=== PATIENT | female | born 1965 | race African-American/Black ===

== ENCOUNTER 2017-02-24 09:02 | Observation (INO) | payer SELFPAY ==
[2017-02-24] MEDS ORDERED: Acetaminophen 325 MG Suppository ONE (09:19)
[2017-02-24 09:52] LABS: Mean Platelet Volume 8.3 fL (7.4-10.4); Red Blood Cell (RBC) Count 4.82 mill/uL (4.20-5.40)
[2017-02-24 10:17] LABS: Neutrophil 97 % (42-75)
[2017-02-24] MEDS ORDERED: Albuterol Sulfate 2.5 mg/3 ml Neb ONE (11:11)
[2017-02-24] MEDS ORDERED: Albuterol Sulfate 2.5 mg/0.5 ml Neb ONE (11:11)
[2017-02-24 12:18] LABS: Troponin I Less than 0.010 ng/mL (< 0.028)
[2017-02-24 12:20] LABS: ALT (SGPT) 34 U/L (8-55); AST (SGOT) 40 U/L (5-34); Alkaline Phosphatase 74 U/L (40-150); Anion Gap 17 mmol/L (10-20); BUN (Urea Nitrogen) 13 mg/dL (7.0-18.7); Bilirubin, Total 0.2 mg/dL (0.2-1.2); Calc. Creatinine Clearance 0 mL/min (70-130); Calcium 9.7 mg/dL (7.8-10.44); Carbon Dioxide 23 mmol/L (22-29); Chloride 106 mmol/L (98-107); Estimated GFR-MDRD Greater than 90; Globulin 3.9 g/dL (2.4-3.5); Protein, Total 8.4 g/dL (6.0-8.3)
--- NOTE | 2017-02-24 12:33 | CON ---
DATE OF CONSULTATION: 02/24/2017 The patient was seen in consultation by Dr. Delacruz for evaluation of possible epiglottitis. HISTORY OF PRESENT ILLNESS: This is a 51-year-old female with history of asthma. Yesterday she has had sudden need for her albuterol, which she has had needed the preceding week or two. She woke up t his morning with a very tight feeling throat, tight chest and strong coughing fits. These coughing f its and choking fits were lead to periods where she could not breathe. She presented to the emergenc y room. CT scan of neck confirmed a possible soft tissue swelling of the upper airway. She was paul elizabeth with IV steroids, IV Levaquin and she received racemic epinephrine. She was transferred to [facility]'s Emergency Room with an emergency room physician in transit as well. OBJECTIVE: GENERAL: The patient is resting upright in the bed, slightly extended, mild respiratory distress. VITAL SIGNS: Heart rate is elevated 125. Otherwise, vital signs are within normal limits, sats 97% on room air. HEENT: Voice is mild raspy quality. NECK: No lymphadenopathy, no masses, no tender areas or fluctuant areas, no blanching, erythema, or cellulitis of an obvious lymph node. The submandibular gland appeared to be within normal limits. ORAL CAVITY AND OROPHARYNX: Shows no evidence of trismus. The floor of mouth and base of tongue muc inez is healthy. NOSE: Nasal cavity is clear anteriorly. EARS: TMs intact. Middle ears well aerated. PROCEDURE: Flexible laryngoscopy was performed after topical anesthesia and decongestant was applied to the nasal cavity. Nasal cavity and nasopharynx are clear of lesions. The bilateral vocal cords are fully mobile. Piriform sinuses, vallecula, epiglottis are all within normal limits. There is no evidence of edema, visualized in any forms, she did have her mild choking fits during the oral cavit y exam and during the flexible exam and despite that she showed a mild amount of possible laryngospas m, otherwise her obstruction appears to be more lower airway consistent with acute severe asthma esau ck. ASSESSMENT: 1. Acute asthma attack. 2. Mild laryngospasm associated with this asthma episode. PLAN: Recommend she be admitted to Internal Medicine and treated and recommend to give albuterol now . Recommend observation and monitoring her asthma symptoms. Should there be any progression of uppe r airway symptoms, please reconsult us.
--- NOTE | 2017-02-24 12:35 | RAD ---
CHEST 1 VIEW: Date: 02/24/17 HISTORY: Dyspnea. COMPARISON: 02/24/17 earlier exam. FINDINGS: Cardiac silhouette is magnified by projection. Pulmonary vasculature is upper limits of normal. Media stinum is midline. There is no lobar consolidation or evidence of pneumothorax. personnel monitor leads overlie the chest. IMPRESSION: No active cardiopulmonary abnormalities are demonstrated. POS: [facility]
[2017-02-24] MEDS ORDERED: Sodium Chloride 0.9% 1,000 ML IV SCH (13:21)
[2017-02-24] MEDS ORDERED: Ondansetron HCl/PF 4 MG/2 ML Vial IVP PRN (13:21)
[2017-02-24] MEDS ORDERED: Ondansetron ODT 4 MG TAB SL PRN (13:21)
[2017-02-24 13:36] VITALS: BMI 38.3
[2017-02-24] MEDS: Acetaminophen 325 MG TAB PO PRN ×2 (14:34→17:23)
[2017-02-24] MEDS: Dexamethasone 4 mg/ml Vial SLOW IVP SCH ×2 (14:34→21:40)
[2017-02-24] MEDS ORDERED: FLU VACC QS2017-18 36 mo. & older 0.5 ML SYRINGE IM ONE (14:45)
[2017-02-24] MEDS ORDERED: hydrALAZINE 20 MG/ML VIAL SLOW IVP PRN (16:43)
[2017-02-24] MEDS ORDERED: Calcium Carbonate 500 MG ChewTAB PO PRN (16:57)
[2017-02-24 17:36] LABS: Amphetamine Not Detected (NotDetected); Methadone Not Detected (NotDetected); Methamphetamine Not Detected (NotDetected)
[2017-02-24] MEDS: Diabetic Tussin 200 MG/10 ML UDCUP PO PRN (18:52)
--- NOTE | 2017-02-24 20:01 | HP ---
CHIEF COMPLAINT: Shortness of breath. HISTORY OF PRESENT ILLNESS: This is a 51-year-old pleasant lady who was apparently in usual state of health with a history of asthma, started having shortness of breath with a sudden need for albuterol yesterday evening. She says that she had such feeling preceding week or two. Today, she woke up th is morning with a very tight feeling in throat and just having strong coughing bouts to the point pablo t she could not breathe. She was concerned and hence she came into the emergency room, CT scan of th e neck confirmed a possible soft tissue swelling in the upper airway, she was treated with IV steroid s, IV Levaquin and received racemic epinephrine and was transferred to [facility] for furthe r evaluation and treatment. She denies any fever or chills. PAST MEDICAL HISTORY: Significant for hypertension and asthma. PAST SURGICAL HISTORY: . SOCIAL HISTORY: Drinks less than 5 drinks per day, former drug uses, abused cocaine and marijuana, h as no smoking history. ALLERGIES: AMOXICILLIN AND PENICILLIN. CURRENT MEDICATIONS: Include lisinopril, hydrochlorothiazide and p.r.n. albuterol. FAMILY HISTORY: Negative for diabetes and hypertension. REVIEW OF SYSTEMS: Significant for no fever, no chills, no headache, no appetite, no hearing latenci es. No cough. Significant for shortness of breath. No chest pain. No diarrhea, dysuria or polyuri a. No memory or mood changes noted. PHYSICAL EXAMINATION: VITAL SIGNS: Blood pressure is 163/94, pulse is 110, afebrile, satting 93% on room air. GENERAL: The patient is lying in bed, right now in no apparent distress. Apparently in the ER, she was in respiratory distress and tachycardic. HEENT: Atraumatic, normocephalic. Pupils equally round, react to light. Extraocular movements inta ct. Mucous membranes moist. NECK: Supple. No JVD. CHEST: Breath sounds heard. No rales or rhonchi. HEART: S1, S2 normal. No murmurs or gallops. Tachycardic. ABDOMEN: Soft. EXTREMITIES: No cyanosis, clubbing, edema. Distal pulses present. NEUROLOGIC: Alert, awake, oriented. No cranial deficits. No sensorimotor deficits. LABORATORY DATA: CRP is 1.4. WBC count is 10, hemoglobin is 14. EKGs shows no ST-T wave changes, s hows tachycardia. Chest x-ray was negative. Potassium is 4.5, creatinine is 0.7, BUN is 13. ASSESSMENT AND PLAN: 1. Shortness of breath secondary to asthmatic bronchitis. The patient was treated with steroids, Le vaquin, racemic epinephrine and before she was transferred out here. Dr. Vences scoped the pat ient and did a flexible laryngoscopy after topical anesthesia was administered, and he found that the bilateral vocal cords were fully mobile, pyriform sinus, vallecula, epiglottis were within normal li mits. There was no evidence of edema in the visualized areas and she did have mild choking, which du ring the oral cavity exam. The patient was determined to have a possible mild amount of laryngospasm secondary to alongside with acute severe asthmatic attack. The patient is doing much better right n ow. She is on p.r.n. neb treatments and IV Decadron. We will change Decadron to p.o. steroids in th e morning if clinically better. We will continue p.o. Levaquin as well. 2. Hypertension. We will continue home medications. 3. Tachycardia. We will monitor the patient's hospital stay. 4. History of cocaine and marijuana. The patient has been counseled. 5. History of alcohol use, the patient has been counseled. 6. Sequential compression devices for deep venous thrombosis prophylaxis. I will work with the nadira garnica for further caring for the patient.
[2017-02-24] MEDS: Docusate 100 MG CAP PO SCH (21:40)
[2017-02-25] MEDS: HYDROcodone/Acetaminophen 5/325 mg Tablet PO PRN ×2 (00:11→12:30)
[2017-02-25 05:05] LABS: Anion Gap 11 mmol/L (10-20); BUN (Urea Nitrogen) 11 mg/dL (7.0-18.7); Calc. Creatinine Clearance 151 mL/min (70-130); Calcium 10.1 mg/dL (7.8-10.44); Carbon Dioxide 25 mmol/L (22-29); Chloride 106 mmol/L (98-107); Estimated GFR-MDRD Greater than 90
[2017-02-25] MEDS: Benzonatate 100 MG CAP PO PRN ×2 (05:54→10:12)
[2017-02-25] MEDS: Diabetic Tussin 200 MG/10 ML UDCUP PO PRN ×2 (05:54→10:13)
[2017-02-25 06:47] LABS: Band 3 % (5-11); Hematocrit 42.8 % (36.0-47.0); Neutrophil 71 % (42-75); Red Blood Cell (RBC) Count 4.71 mill/uL (4.20-5.40); White Blood Cell (WBC) Count 5.8 thou/uL (4.8-10.8)
[2017-02-25] MEDS ORDERED: Lisinopril/Hydrochlorothiazide 20/25 mg Tablet PO SCH (09:00)
[2017-02-25] MEDS: Docusate 100 MG CAP PO SCH (09:18)
[2017-02-25 12:02] VITALS: BP 150/68; TEMP 98.4
--- NOTE | 2017-02-25 12:46 | DIS ---
DATE OF ADMISSION: 02/24/2017 DATE OF DISCHARGE: 02/25/2017 DISCHARGE DIAGNOSES: 1. Asthmatic bronchitis, obesity with a BMI of 37. 2. Hypertension, stable. 3. Tachycardia, stable. 4. History of cocaine and marijuana use. 5. History of alcohol use. DISCHARGE MEDICATIONS: The patient's discharge medications include Levaquin 500 mg p.o. daily for 7 days, Medrol Dosepak take as directed, Tessalon Perles one tablet 100 mg p.o. q.6 hours p.r.n. for co ugh and Tylenol #3 one tablet p.o. q.8 hours p.r.n. for pain in addition to the other home medication s. BRIEF HOSPITAL COURSE: A 51-year-old pleasant lady came into the hospital with shortness of breath. Please refer to my H&P for further details. Dr. Vences was consulted. He scoped the patient in the ER and found that there was no edema or laryngitis or epiglottitis. It was determined that the nabor ent had a severe attack of asthma, secondary to bronchitis. She was put on steroids, p.o. antibiotic s and p.o. cough medications. With this treatment, she improved. She was gently hydrated as well. She is right now, doing much better. She has some chest pain because of coughing, but otherwise her entry is bilaterally clear. PHYSICAL EXAMINATION: VITAL SIGNS: At the time of discharge, her blood pressure was 150/68, pulse was 100, respirations 16 and temperature afebrile. GENERAL: The patient was lying in bed in no apparent distress. HEENT: Atraumatic and normocephalic. Pupils are equally, round and reactive to light. Extraocular movements are intact. Mucous membranes are moist. NECK: Supple. No JVD. CHEST: Breath sounds. There are no rales or rhonchi. HEART: S1 and S2 normal. Tachycardic. ABDOMEN: Soft and obese. EXTREMITIES: No cyanosis, clubbing or edema. Distal pulses present. NEUROLOGIC: Alert, awake and oriented. No cranial deficits. No sensorimotor deficits. This patient's flu test was negative. Creatinine is 0.6. The patient is doing much better right now with the treatment. She is being medically stable to be discharged home and she is asked to come ba ck to the emergency room in case symptoms recur. Total time for this discharge took 35 minutes.
== END 2017-02-25 14:10 | disposition home or self-care (01) ==
LOC: ERS 09:02 → 2SW 13:25
PROVIDERS: ADMIT Internal Medicine; ATTEND Internal Medicine
DX: J45.901 Unspecified asthma with (acute) exacerbation (principal); J38.5 Laryngeal spasm; F14.11 Cocaine abuse, in remission; F10.21 Alcohol dependence, in remission; F12.11 Cannabis abuse, in remission; I10 Essential (primary) hypertension; E66.9 Obesity, unspecified; Z68.37 Body mass index [BMI] 37.0-37.9, adult; Z79.899 Other long term (current) drug therapy; Z88.0 Allergy status to penicillin; Z98.890 Other specified postprocedural states
CPT/HCPCS: 36415; 71010; 80048; 80306; 83880; 85025; 85652; 86140; 90471; 90682; 93005; 94640; 96360; 96361; 96374; 96376; G0008; G0378; J1100; J7611; J7620; Q2036

== ENCOUNTER 2020-01-17 10:26 | Emergency (ER) | payer SELFPAY ==
[2020-01-17 12:56] LABS: #Lymphocytes 3.1 thou/uL (1.20-3.40); #Monocytes 0.9 thou/uL (0.11-0.59); #Neutrophils 5.1 thou/uL (1.40-6.50); %Basophils 0.4 % (0.0-1.0); %Eosinophils 0.5 % (0.0-10.0); %Lymphocytes 34.2 % (21.0-51.0); %Monocytes 9.3 % (0.0-10.0); %Neutrophils 55.6 % (42.0-75.0); Hemoglobin 12.3 g/dL (12.0-16.0); Mean Corpuscular HGB CONC 32.2 g/dL (32.0-36.0); Mean Corpuscular Hemoglobin 28.2 pg (27.0-31.0); Mean Corpuscular Volume 87.7 fL (78.0-98.0); Mean Platelet Volume 7.5 fL (7.4-10.4); Platelet Count 379 thou/uL (130-400); RBC Distribution Width 13.8 % (11.5-14.5); Red Blood Cell (RBC) Count 4.35 mill/uL (4.20-5.40); White Blood Cell (WBC) Count 9.1 thou/uL (4.8-10.8)
[2020-01-17 13:19] LABS: ALT (SGPT) 28 U/L (8-55); AST (SGOT) 32 U/L (5-34); Albumin 3.4 g/dL (3.5-5.0); Alkaline Phosphatase 71 U/L (40-110); Anion Gap 12 mmol/L (10-20); BUN (Urea Nitrogen) 10 mg/dL (9.8-20.1); Bilirubin, Total 0.3 mg/dL (0.2-1.2); Calc. Creatinine Clearance 0 mL/min (70-130); Calcium 9.6 mg/dL (7.8-10.44); Carbon Dioxide 30 mmol/L (22-29); Chloride 106 mmol/L (98-107); Estimated GFR-MDRD Greater than 90; Globulin 3.2 g/dL (2.4-3.5); Glucose 93 mg/dL (70-105); Potassium 3.5 mmol/L (3.5-5.1); Protein, Total 6.6 g/dL (6.0-8.3); Sodium 144 mmol/L (136-145)
--- NOTE | 2020-01-17 14:22 | CT ---
CT PELVIS WITHOUT CONTRAST: HISTORY: A 54-year-old female who presented with drainage and odor from her wound vac in the pressure ulcer in the left gluteal region. FINDINGS: Absence of IV contrast reduces the sensitivity of the exam. There is a soft tissue mass/phlegmon in the left posterior tibial left lower sacral coccygeal region with a fistulous communication with the skin and air within the cavity in the mass. The possibility of abscess cannot be excluded in the absence of contrast. The adjacent bone, however, demonstrates n o destructive changes to suggest osteomyelitis. No intrapelvic free fluid or free air is seen. Uterus is present. There is a 2 cm soft tissue focal density in the subcutaneous fat of the left lower anterior abdomen of unclear etiology. POS: [facility]
[2020-01-17] MEDS ORDERED: HYDROcodone/Acetaminophen 10/325 mg Tablet ONE (15:52)
== END 2020-01-17 16:40 | disposition home or self-care (01) ==
LOC: ERS 10:26
DX: L89.159 Pressure ulcer of sacral region, unspecified stage (principal); I10 Essential (primary) hypertension; J45.909 Unspecified asthma, uncomplicated; Z87.891 Personal history of nicotine dependence; Z79.899 Other long term (current) drug therapy
CPT/HCPCS: 36415; 72192; 80053; 83605; 85025

== ENCOUNTER 2020-06-14 09:26 | Outpatient (CLI) | payer BC | END 2020-06-14 09:27 | disposition home or self-care (01) | LOC: BICMAMMO 09:26 | PROVIDERS: ATTEND Family Medicine | DX: Z12.31 Encounter for screening mammogram for malignant neoplasm of breast (principal) | CPT/HCPCS: 77063; 77067 ==

== ENCOUNTER 2021-08-23 10:57 | Outpatient (CLI) | payer BC | END 2021-08-23 10:58 | disposition home or self-care (01) | LOC: BICMAMMO 10:57 | PROVIDERS: ATTEND Family Medicine | DX: Z12.31 Encounter for screening mammogram for malignant neoplasm of breast (principal) | CPT/HCPCS: 77063; 77067 ==

== ENCOUNTER 2024-01-20 09:15 | Outpatient (CLI) | payer MEDICARE, MEDICAID | END 2024-01-20 09:16 | disposition home or self-care (01) | LOC: SCSMRI 09:15 | PROVIDERS: ATTEND Family Medicine | DX: R29.898 Other symptoms and signs involving the musculoskeletal system (principal); M47.816 Spondylosis without myelopathy or radiculopathy, lumbar region; M51.369 Other intervertebral disc degeneration, lumbar region without mention of lumbar back pain or lower extremity pain; M48.061 Spinal stenosis, lumbar region without neurogenic claudication; M47.815 Spondylosis without myelopathy or radiculopathy, thoracolumbar region; M51.379 Other intervertebral disc degeneration, lumbosacral region without mention of lumbar back pain or lower extremity pain; M48.07 Spinal stenosis, lumbosacral region; M47.817 Spondylosis without myelopathy or radiculopathy, lumbosacral region | CPT/HCPCS: 72148 ==